=== PATIENT | female | born 1955 | race Caucasian/White ===

== ENCOUNTER → 2020-08-17 | Outpatient (CLI) | payer OTHER ==
[~2020-08-17] MED LIST: Advil200 M1; Aspir 8181 MG; CALCAVITD; Cranberry300 MG; LISHYD1012; Lovastatin20 MG; MULTI VITAMIN1 EACH; NAPR220; Synthroid88 MCG
[2020-08-18 14:57] LABS: Stool Occult Bld Immuno 1 Positive (NEGATIVE); Stool Occult Bld Immuno 2 Positive (NEGATIVE)
== END | disposition home or self-care (01) ==
LOC: LAB 11:30 → LAB SHORT 11:30 → EDSTATUS 07-20 13:10 → LAB FUT 07-20 13:10
PROVIDERS: Internal Medicine Gastroenterology
DX: Z12.11 Encounter for screening for malignant neoplasm of colon (principal)
CPT/HCPCS: G0328

== ENCOUNTER 2021-05-18 07:34 | Day surgery (SDC) | payer OTHER ==
[~2021-05-18] VITALS: Ht 167.6 cm; Wt 95.4 kg
[~2021-05-18 07:34] MED LIST changes: +Aspir 8181 MG PO; +EUTHYROX88 MCG PO; +GABA100 PO; +IBUP800 PO; +Lisinopril-Hct1 EAC4 PO; +Lovastatin20 MG PO
[2021-05-18] MEDS ORDERED: ASPI81CH (08:01)
== END 2021-05-18 09:53 | disposition home or self-care (01) ==
LOC: ORSCSDS 07:34
PROVIDERS: Internal Medicine Gastroenterology
PROC: 0DJD8ZZ Inspection of Lower Intestinal Tract, Via Natural or Artificial Opening Endoscopic (ICD-10-PCS; principal; 2021-05-18 09:00)
DX: R19.5 Other fecal abnormalities (principal); K57.30 Diverticulosis of large intestine without perforation or abscess without bleeding; E66.9 Obesity, unspecified; I10 Essential (primary) hypertension; Z68.34 Body mass index [BMI] 34.0-34.9, adult; Z79.82 Long term (current) use of aspirin; Z79.899 Other long term (current) drug therapy
CPT/HCPCS: J2704; J7120

== ENCOUNTER → 2021-05-22 | Outpatient (CLI) | payer OTHER ==
[~2021-05-22] MED LIST changes: +ASPI81CH
[2021-05-24 09:26] LABS: Stool Occult Bld Immuno 1 Positive (NEGATIVE)
== END | disposition home or self-care (01) ==
LOC: LAB 20:00 → LAB SHORT 20:00
PROVIDERS: Internal Medicine Gastroenterology
DX: R19.5 Other fecal abnormalities (principal)
CPT/HCPCS: 82274

== ENCOUNTER → 2021-08-09 | Outpatient (CLI) | payer OTHER | LOC: LAB 15:04 → LAB SHORT 15:04 | DX: D48.5 Neoplasm of uncertain behavior of skin (principal); Z88.5 Allergy status to narcotic agent; Z88.6 Allergy status to analgesic agent | CPT/HCPCS: 88305 ==